=== PATIENT | female | born 1975 | race Caucasian/White ===

== ENCOUNTER 2018-03-25 11:33 | Emergency (ER) | payer OTHER ==
[~2018-03-25] VITALS: Ht 165.1 cm; Wt 85.7 kg
[2018-03-25 11:48] VITALS: Ht 165.1 cm; Wt 85.7 kg
[2018-03-25 13:33] VITALS: BP 131/74
== END 2018-03-25 13:33 | disposition home or self-care (01) ==
LOC: ED 11:33
DX: S86.911A Strain of unspecified muscle(s) and tendon(s) at lower leg level, right leg, initial encounter (principal); W18.30XA Fall on same level, unspecified, initial encounter; Y93.71 Activity, boxing; Y92.89 Other specified places as the place of occurrence of the external cause; Y99.8 Other external cause status
CPT/HCPCS: Q0092